=== PATIENT | female | born 1975 | race Caucasian/White ===

== ENCOUNTER 2016-07-24 20:34 | Emergency (ER) | payer OTHER ==
--- NOTE | 2016-07-24 21:03 | Emergency Department Record ---
History of Present Illness - General Chief complaint: ENT Stated complaint: SORE THROAT Time Seen by Provider: 07/24/16 20:54 Source: Patient Mode of Arrival: Ambulatory Limitations: No limitations - History of Present Illness Initial comments: 41 yo female presents with sore throat that started first of the week. She saw her PCP and tested positive for strep and negative for influenza. She was started on a Zpack. She feels like she is not getting better. No fever. No nausea, vomiting or diarrhea. She does have a productive cough. MD complaint: Sore throat -: Days(s) (3) Location: Other (Sore throat) Severity: Moderate Quality: Aching Consistency: Constant Improves with: None Worsens with: Swallowing Associated Symptoms: Cough - Related Data Home Medications Medication Instructions Recorded Confirmed Last Taken Estradiol 1 mg PO DAILY 04/15/14 07/24/16 1 Day Ago Famotidine [Famotidine] 20 mg PO BID 04/15/14 07/24/16 1 Day Ago Omeprazole [Omeprazole] 20 mg PO BID 04/15/14 07/24/16 1 Day Ago Lorazepam [Ativan] 1 mg PO Q12H PRN 05/19/15 07/24/16 Unknown Ketorolac Tromethamine 60 mg IM ASDIR syringe 03/10/16 07/24/16 Unknown Azithromycin [Zithromax] 250 mg PO DAILY 07/24/16 07/24/16 07/24/16 Previous Rx's Medication Instructions Recorded Hydrocodone/Acetaminophen [[place] 1 tab PO Q8H PRN #15 tab 12/13/15 5mg/325mg] Cephalexin [Keflex] 500 mg PO TID #21 cap 07/24/16 Allergies Allergy/AdvReac Type Severity Reaction Status Date / Time ciprofloxacin [From Cipro] Allergy Severe bronchiospa Unverified 03/10/16 19:09 sms ciprofloxacin HCl Allergy Severe bronchiospa Unverified 03/10/16 19:09 [From Cipro] sms Penicillins Allergy Severe HIVES Unverified 03/10/16 19:09 topiramate [From Topamax] Allergy Severe ANAPHYLAXIS Unverified 03/10/16 19:09 alprazolam [From Xanax] Allergy Intermediate HYPERSENSIT Unverified 03/10/16 19: 09 IVITY nitrofurantoin Allergy Intermediate VOMITING Unverified 03/10/16 19:09 [From Macrobid] nitrofurantoin Allergy Intermediate VOMITING Unverified 03/10/16 19:09 macrocrystalline [From Macrobid] Review of Systems Constitutional: Denies: Chills, Fever, Malaise, Weakness Eyes: Denies: Eye discharge, Eye pain, Photophobia ENT: Reports: Congestion, Throat pain Respiratory: Reports: Cough. Denies: Stridor, Wheezes Cardiovascular: Denies: Chest pain, Palpitations, Syncope Endocrine: Denies: Fatigue Gastrointestinal: Denies: Abdominal pain, Diarrhea (Thursday, resolved.), Nausea, Vomiting Genitourinary: Denies: Dysuria, Urgency Musculoskeletal: Denies: Arthralgia, Back pain, Myalgia, Neck pain Skin: Denies: Bruising, Change in color, Rash Neurological: Denies: Confusion, Headache Psychiatric: Denies: Anxiety Hematological/Lymphatic: Reports: Swollen glands. Denies: Blood Clots, Easy bleeding, Easy bruising Past Medical History - SOCIAL HISTORY Smoking Status: Former smoker - RESPIRATORY Hx Respiratory Disorders: No - CARDIOVASCULAR Hx Cardio Disorders: No - NEURO Hx Neuro Disorders: Yes Hx Headaches: Yes - GI Hx GI Disorders: No - Hx Genitourinary Disorders: No - ENDOCRINE Hx Endocrine Disorders: No - MUSCULOSKELETAL Hx Musculoskeletal Disorders: No - PSYCH Hx Psych Problems: No - HEMATOLOGY/ONCOLOGY Hx Hematology/Oncology Disorders: No Family Medical History Hx Diabetes: Father Hx Heart Disease: Father Hx Stroke: Father *Stroke Comment: anurism Physical Exam - General General Appearance: Alert, Oriented x3, Cooperative, No acute distress Limitations: No limitations - Head Head exam: Normal inspection - Eye Eye exam: Normal appearance, PERRL. negative: Conjunctival injection, Periorbital swelling - ENT ENT exam: Normal exam Ear exam: Normal external inspection Nasal Exam: Normal inspection Mouth exam: Normal external inspection Teeth exam: Normal inspection Throat exam: Tonsillar erythema, Tonsillomegaly, Other (Mild swelling bilaterally, no soft tissue shift or mass, no abscess). negative: Normal inspection, Tonsillar exudate, R peritonsillar mass, L peritonsillar mass - Neck Neck exam: Lymphadenopathy (left sided, mild). negative: Meningismus, Tenderness, Thyromegaly - Respiratory Respiratory exam: Normal lung sounds bilaterally. negative: Respiratory distress - Cardiovascular Cardiovascular Exam: Regular rate, Normal rhythm, Normal heart sounds - GI/Abdominal GI/Abdominal exam: Soft. negative: Tenderness - Rectal Rectal exam: Deferred - exam: Deferred - Extremities Extremities exam: Normal inspection, Full ROM, Normal capillary refill. negative: Pedal edema, Tenderness - Back Back exam: Reports: Normal inspection, Full ROM. Denies: Muscle spasm, Rash noted, Tenderness - Neurological Neurological exam: Alert, Normal gait, Oriented X3 - Psychiatric Psychiatric exam: Normal affect, Normal mood. negative: Agitated, Anxious - Skin Skin exam: Dry, Intact, Normal color, Warm Course - Reevaluation(s) Reevaluation #1: The tonsils have mild swelling, no abscess She has a clear voice. No sign of airway involvement. She was given Decadron in the ED 07/24/16 21:05 Disposition Disposition: Discharge Clinical Impression: Strep tonsillitis Disposition: Home, Self-Care Return To Work/School Note Provided: Yes Condition: (1) Good Instructions: Strep Throat (ED) Additional Instructions: Stay well hydrated Return if worse, dehydration, uncontrolled pain or any new concerns Call your doctor tomorrow for a recheck Prescriptions: Cephalexin [Keflex] 500 mg PO TID #21 cap Forms: Patient Portal Access Time of Disposition: 21:07
[2016-07-24] MEDS ORDERED: DEXAMETHASONE SOD PHOSPHATE 10MG/ML VIAL PO ONE (21:05)
== END 2016-07-24 21:21 | disposition home or self-care (01) ==
LOC: ER 20:34
DX: J03.00 Acute streptococcal tonsillitis, unspecified (principal); R05 Cough; Z87.891 Personal history of nicotine dependence
CPT/HCPCS: 99282

== ENCOUNTER 2016-08-26 02:03 | Emergency (ER) | payer OTHER ==
[2016-08-26] MEDS ORDERED: ONDANSETRON HCL IV 4 MG/2 ML VIAL IV ONE (02:14)
[2016-08-26] MEDS ORDERED: 0.9 % SODIUM CHLORIDE 1,000 ML BAG IV ONE ×2 (02:14→03:16)
--- NOTE | 2016-08-26 02:16 | Emergency Department Record ---
History of Present Illness - General Chief complaint: Nausea, Vomiting, Diarrhea Stated complaint: NAUSEA/VOMITNG Time Seen by Provider: 08/26/16 02:12 Source: Patient, Family Mode of Arrival: Ambulatory Limitations: No limitations - History of Present Illness Initial comments: 41 yo female presents with nausea, vomiting, and diarrhea that started earlier this evening. No blood in either. No current antibiotics. No fevers. She has a prior history of gall bladder removal. No history of Crohn's or IBD. Over the weekend her grandson had vomiting and diarrhea as well. The child actually vomited on her one time. PCP is Dr Khan in [place]. MD complaint: Diarrhea, Nausea, Vomiting -: Hour(s) Description of Vomiting: Watery Description of Diarrhea: Water - Related Data Home Medications Medication Instructions Recorded Confirmed Last Taken Estradiol 1 mg PO DAILY 04/15/14 08/26/16 1 Day Ago Famotidine [Famotidine] 20 mg PO BID 04/15/14 08/26/16 1 Day Ago Omeprazole [Omeprazole] 20 mg PO BID 04/15/14 08/26/16 1 Day Ago Lorazepam [Ativan] 1 mg PO Q12H PRN 05/19/15 08/26/16 Unknown Ketorolac Tromethamine 60 mg IM ASDIR syringe 03/10/16 08/26/16 Unknown Previous Rx's Medication Instructions Recorded Hydrocodone/Acetaminophen [[place] 1 tab PO Q8H PRN #15 tab 12/13/15 5mg/325mg] Ondansetron [Zofran Odt] 4 mg PO Q8H #15 tab.rapdis 08/26/16 Allergies Allergy/AdvReac Type Severity Reaction Status Date / Time ciprofloxacin [From Cipro] Allergy Severe bronchiospa Unverified 03/10/16 19:09 sms ciprofloxacin HCl Allergy Severe bronchiospa Unverified 03/10/16 19:09 [From Cipro] sms Penicillins Allergy Severe HIVES Unverified 03/10/16 19:09 topiramate [From Topamax] Allergy Severe ANAPHYLAXIS Unverified 03/10/16 19:09 alprazolam [From Xanax] Allergy Intermediate HYPERSENSIT Unverified 03/10/16 19: 09 IVITY nitrofurantoin Allergy Intermediate VOMITING Unverified 03/10/16 19:09 [From Macrobid] nitrofurantoin Allergy Intermediate VOMITING Unverified 03/10/16 19:09 macrocrystalline [From Macrobid] Review of Systems Constitutional: Denies: Chills, Fever, Malaise Eyes: Denies: Eye discharge ENT: Denies: Congestion, Throat pain Respiratory: Denies: Cough, Dyspnea, Hemoptysis, Stridor, Wheezes Cardiovascular: Denies: Chest pain, Syncope Endocrine: Denies: Fatigue Gastrointestinal: Reports: Diarrhea, Nausea, Vomiting Genitourinary: Denies: Dysuria, Urgency Musculoskeletal: Denies: Arthralgia, Back pain, Myalgia, Neck pain Skin: Denies: Change in color, Rash Neurological: Denies: Confusion, Headache Psychiatric: Denies: Anxiety Hematological/Lymphatic: Denies: Easy bleeding, Easy bruising, Swollen glands Past Medical History - SOCIAL HISTORY Smoking Status: Former smoker - RESPIRATORY Hx Respiratory Disorders: No - CARDIOVASCULAR Hx Cardio Disorders: No - NEURO Hx Neuro Disorders: Yes Hx Headaches: Yes - GI Hx GI Disorders: No - Hx Genitourinary Disorders: No - ENDOCRINE Hx Endocrine Disorders: No - MUSCULOSKELETAL Hx Musculoskeletal Disorders: No - PSYCH Hx Psych Problems: No - HEMATOLOGY/ONCOLOGY Hx Hematology/Oncology Disorders: No Family Medical History Hx Diabetes: Father Hx Heart Disease: Father Hx Stroke: Father *Stroke Comment: anurism Physical Exam - General General Appearance: Alert, Oriented x3, Cooperative, No acute distress Limitations: No limitations - Head Head exam: Atraumatic, Normal inspection - Eye Eye exam: Normal appearance, PERRL. negative: Conjunctival injection, Periorbital swelling, Scleral icterus - ENT ENT exam: Normal exam, Mucous membranes moist, Normal external ear exam, Normal orophraynx Ear exam: Normal external inspection. negative: External canal tenderness Nasal Exam: Normal inspection. negative: Discharge, Sinus tenderness Mouth exam: Normal external inspection Teeth exam: Normal inspection. negative: Dental caries Throat exam: Normal inspection. negative: Tonsillar erythema, Tonsillar exudate - Neck Neck exam: Normal inspection, Full ROM. negative: Tenderness - Respiratory Respiratory exam: Normal lung sounds bilaterally. negative: Respiratory distress - Cardiovascular Cardiovascular Exam: Regular rate, Normal rhythm, Normal heart sounds - GI/Abdominal GI/Abdominal exam: Soft, Normal bowel sounds. negative: Diminished bowel sounds , Distended, Guarding, Hyperactive bowel sounds, Rebound, Tenderness - Rectal Rectal exam: Deferred - exam: Deferred - Extremities Extremities exam: Normal inspection, Full ROM, Normal capillary refill. negative: Tenderness - Back Back exam: Reports: Normal inspection, Full ROM. Denies: Muscle spasm, Rash noted, Tenderness - Neurological Neurological exam: Alert, Normal gait, Oriented X3 - Psychiatric Psychiatric exam: Normal affect, Normal mood - Skin Skin exam: Dry, Intact, Normal color, Warm. negative: Cyanosis Course - Reevaluation(s) Reevaluation #1: The labs were reviewed WBC was 16 on the CBC On the CMP bili is 1.5, other acute changes. She reports improvement of her nausea. 08/26/16 02:48 Reevaluation #2: The nausea and vomiting is under control. She is trying PO fluids at this time. 08/26/16 03:57 Reevaluation #3: No vomiting or diarrhea with controlled nausea We discussed home care and reasons to return if any concerns. 08/26/16 04:17 Medical Decision Making - Lab Data Result diagrams: 08/26/16 02:14 08/26/16 02:14 Disposition Disposition: Discharge Clinical Impression: Vomiting and diarrhea Disposition: Home, Self-Care Condition: (1) Good Instructions: Acute Nausea and Vomiting (ED), Acute Diarrhea (ED) Additional Instructions: Rest and stay well hydrated Return if you have fever, pain, blood in the stools or any new concerns Call your doctor for close follow up as soon as possible Start slowly with liquids and bland diet this morning. Prescriptions: Ondansetron [Zofran Odt] 4 mg PO Q8H #15 tab.rapdis Forms: Patient Portal Access Time of Disposition: 04:18
[2016-08-26 02:23] LABS: BASO % 0.2 % (0-6); EOS % 1.3 % (0-6); HEMATOCRIT 46.9 % (35.0-47.0); LYMPH % 6.8 % (16-45); MEAN CORPUSCULAR HGB CONC 34.1 g/dl (32-36); MEAN PLATELET VOLUME 10.3 fl (7.4-10.4); MONO % 6.1 % (0-9); PLATELET COUNT 339 K/uL (130-400); RED BLOOD COUNT 5.52 M/uL (3.80-5.40); RED CELL DISTRIBUTION WIDTH 13.1 % (11.5-14.5); WHITE BLOOD COUNT W/O DIFF 16.6 K/uL (4.2-12.2)
[2016-08-26 02:24] LABS: MEAN CORPUSCULAR HEMOGLOBIN 28.9 pg (27-33)
[2016-08-26 02:34] LABS: ALB/GLOB RATIO 1.4 (1.1-1.8); ALBUMIN 4.9 gm/dL (3.5-5.0); ALKALINE PHOSPHATASE 81 U/L (38-126); ALT/SGPT 25 U/L (9-52); BILIRUBIN,TOTAL 1.59 mg/dL (0.2-1.3); BLOOD UREA NITROGEN 18 mg/dL (7-17); CREATININE 0.8 mg/dL (0.52-1.04); EST GLOMERULAR FILTRATION RATE > 60 ml/min; GLUCOSE,RANDOM 153 mg/dL (70-110); TOTAL PROTEIN 8.5 gm/dL (6.3-8.2)
[2016-08-26 02:43] LABS: AST/SGOT 18 U/L (14-36)
[2016-08-26] MEDS ORDERED: PROMETHAZINE HCL 25 MG/ML VIAL IVP ONE (03:06)
[2016-08-26] MEDS ORDERED: ONDANSETRON 4 MG ODT TABLET SL ONE (04:17)
== END 2016-08-26 04:36 | disposition home or self-care (01) ==
LOC: ER 02:03
DX: R11.2 Nausea with vomiting, unspecified (principal); R19.7 Diarrhea, unspecified
CPT/HCPCS: 80053; 85027; J2405; 96360; 96374; 96375; 99284; J2550; J7030

== ENCOUNTER 2016-12-06 20:11 | Emergency (ER) | payer OTHER ==
--- NOTE | 2016-12-06 20:33 | Emergency Department Record ---
History of Present Illness - General Chief complaint: Pain Stated complaint: LT KNEE PAIN,SWOLLEN Time Seen by Provider: 12/06/16 20:27 Source: Patient Mode of Arrival: Ambulatory Limitations: No limitations - History of Present Illness Initial comments: 41 yo female presents to ED for evaluation of left knee pain that began approximately 9-10 hours ago, denies specific injury. Patient reports pain to the medial region of the knee, patient denies swelling, fever, chills, or redness symptoms. Patient reports previous injury to the right knee several years ago requiring PT/OT. MD Complaint: Joint pain Onset/Timin -: Hour(s) Location: Left, Knee History of Same: No Radiation: None Severity scale (1-10): 8 Quality: Sharp, Stabbing Consistency: Constant Improves with: Movement, Rest Worsens with: Walking, Weight bearing Associated Symptoms: Denies other symptoms - Related Data Home Medications Medication Instructions Recorded Confirmed Last Taken Estradiol 1 mg PO DAILY 04/15/14 12/06/16 1 Day Ago ~05/18/15 Famotidine [Famotidine] 20 mg PO BID 04/15/14 12/06/16 1 Day Ago ~05/18/15 Omeprazole [Omeprazole] 20 mg PO BID 04/15/14 12/06/16 1 Day Ago ~05/18/15 Lorazepam [Ativan] 1 mg PO Q12H PRN 05/19/15 12/06/16 Unknown Ketorolac Tromethamine 60 mg IM ASDIR syringe 03/10/16 12/06/16 Unknown Previous Rx's Medication Instructions Recorded Hydrocodone/Acetaminophen [[place] 1 tab PO Q8H PRN #15 tab 12/13/15 5mg/325mg] Ondansetron [Zofran Odt] 4 mg PO Q8H #15 tab.rapdis 08/26/16 Naproxen [Naprosyn] 500 mg PO BID #30 tablet 12/06/16 Allergies Allergy/AdvReac Type Severity Reaction Status Date / Time ciprofloxacin [From Cipro] Allergy Severe bronchiospa Verified 12/06/16 20:17 sms ciprofloxacin HCl Allergy Severe bronchiospa Verified 12/06/16 20:17 [From Cipro] sms Penicillins Allergy Severe HIVES Verified 12/06/16 20:17 topiramate [From Topamax] Allergy Severe ANAPHYLAXIS Verified 12/06/16 20:17 alprazolam [From Xanax] Allergy Intermediate HYPERSENSIT Verified 12/06/16 20:17 IVITY nitrofurantoin Allergy Intermediate VOMITING Verified 12/06/16 20:17 [From Macrobid] nitrofurantoin Allergy Intermediate VOMITING Verified 12/06/16 20:17 macrocrystalline [From Macrobid] Travel Screening - Travel/Exposure Within Last 30 Days Have you traveled within the last 30 days?: No - Travel/Exposure Within Last Year Have you traveled outside the [place] in the last year?: No - Additonal Travel Details Have you been exposed to anyone with a communicable illness?: No - Travel Symptoms Symptom Screening: None Review of Systems Constitutional: Denies: Chills, Fever, Malaise, Night sweats Eyes: Denies: Eye discharge, Eye pain ENT: Denies: Congestion, Ear pain, Epistaxis Respiratory: Denies: Cough, Dyspnea Cardiovascular: Denies: Chest pain, Dyspnea on exertion Endocrine: Denies: Fatigue, Heat or cold intolerance Gastrointestinal: Denies: Abdominal pain, Nausea, Vomiting Genitourinary: Denies: Incontinence, Retention Musculoskeletal: Reports: Arthralgia. Denies: Back pain, Gout, Joint swelling Skin: Denies: Bruising, Change in color Neurological: Denies: Abnormal gait, Confusion, Headache, Seizure Psychiatric: Denies: Anxiety Hematological/Lymphatic: Denies: Anemia, Blood Clots Past Medical History - SOCIAL HISTORY Smoking Status: Current every day smoker Alcohol Use: Rare Drug Use: None - RESPIRATORY Hx Respiratory Disorders: No - CARDIOVASCULAR Hx Cardio Disorders: No - NEURO Hx Neuro Disorders: Yes Hx Headaches: Yes (migraines) - GI Hx GI Disorders: Yes Hx Reflux: Yes - Hx Genitourinary Disorders: No - ENDOCRINE Hx Endocrine Disorders: No - MUSCULOSKELETAL Hx Musculoskeletal Disorders: No - PSYCH Hx Psych Problems: Yes Hx Anxiety: Yes Hx Depression: Yes - HEMATOLOGY/ONCOLOGY Hx Hematology/Oncology Disorders: No Family Medical History Any Significant Family History?: No Hx Diabetes: Father Hx Heart Disease: Father Hx Stroke: Father *Stroke Comment: anurism Physical Exam - General General Appearance: Alert, Oriented x3, Cooperative, Mild distress Limitations: No limitations - Head Head exam: Atraumatic, Normocephalic, Normal inspection Head exam detail: negative: Abrasion, Contusion, Alvarado's sign, General tenderness, Hematoma, Laceration - Eye Eye exam: Normal appearance. negative: Conjunctival injection, Periorbital swelling, Periorbital tenderness, Scleral icterus - ENT Ear exam: negative: Auricular hematoma, Auricular trauma Nasal Exam: negative: Active bleeding, Discharge, Foreign body Mouth exam: negative: Drooling, Laceration, Muffled voice, Tongue elevation - Neck Neck exam: Normal inspection. negative: Meningismus, Tenderness - Respiratory Respiratory exam: Normal lung sounds bilaterally. negative: Rales, Respiratory distress, Rhonchi, Stridor - Cardiovascular Cardiovascular Exam: Regular rate, Normal rhythm, Normal heart sounds - GI/Abdominal GI/Abdominal exam: Soft. negative: Rebound, Rigid, Tenderness - Rectal Rectal exam: Deferred - exam: Deferred - Extremities Extremities exam: Tenderness, Other (Mild TTP along the inferio-medial aspect of the left knee, no effusion present, ligaments are stable on examination, no erythema or warmth to suggest a septic joint on examination.). negative: Calf tenderness, Pedal edema - Back Back exam: Denies: CVA tenderness (R), CVA tenderness (L) - Neurological Neurological exam: Alert, Oriented X3. negative: Motor sensory deficit - Psychiatric Psychiatric exam: Normal affect, Normal mood - Skin Skin exam: Normal color. negative: Abrasion Type of lesion: negative: abrasion Course Vital Signs 12/06/16 20:15 Temperature 98.2 F Pulse Rate 77 Respiratory 22 Rate Blood Pressure 124/74 Pulse Ox 96 - Reevaluation(s) Reevaluation #1: 12/06/16 21:39 Left knee: No acute process Patient was updated on all results, will place in a knee immobilizer with crutches and instructions for follow-up with her PCP in 3-5 days for further evaluation and possible PT. Will prescribe Naprosyn as well for her pain symptoms. Patient agrees with the plan as discussed and appears stable for discharge at this time. Disposition Disposition: Discharge Clinical Impression: Strain of left knee Qualifiers: Encounter type: initial encounter Qualified Code(s): S86.912A - Strain of unspecified muscle(s) and tendon(s) at lower leg level, left leg, initial encounter Disposition: Home, Self-Care Condition: (2) Stable Instructions: Knee Pain (ED) Additional Instructions: Return to ED if your symptoms worsen or if you have any concerns. Naprosyn as directed. Knee immobilizer/Crutches Follow-up with you family doctor in 3-5 days as directed for further evaluation of your knee pain symptoms. Prescriptions: Naproxen [Naprosyn] 500 mg PO BID #30 tablet Forms: Patient Portal Access Time of Disposition: 20:33 Quality - Quality Measures Quality Measures: N/A - Blood Pressure Screening Blood Pressure Classification: Pre-Hypertensive BP Reading Systolic Measurement: 124 Diastolic Measurement: 74 Screening for High Blood Pressure: < Pre-Hypertensive BP, F/U Documented > [ [id number]] Pre-Hypertensive Follow-up Interventions: Referral to alternative/primary care provider.
--- NOTE | 2016-12-09 08:45 | RADIOLOGY REPORT ---
EXAM: LEFT KNEE, THREE VIEWS HISTORY: PATIENT STATES NO KNOWN INJURY. PATIENT HAS HISTORY OF PAIN TIMES ONE DAY. TECHNIQUE: Three views of the left knee were provided without comparison examinations. FINDINGS: There is a slight contour deformity within the weight bearing surface of the lateral femoral condyle measuring 5.6 mm. This finding may represent an osteochondral defect. No obvious fractures of the tibia or fibula are noted. No significant suprapatellar bursal effusion is noted. The patella appears unremarkable. IMPRESSION: POSSIBLE OSTEOCHONDRAL DEFECT WITHIN THE WEIGHT BEARING SURFACE OF THE LATERAL FEMORAL CONDYLE. IF THERE IS FURTHER CLINICAL CONCERN THEN AN MRI OF THE LEFT KNEE CAN BE OBTAINED FOR FURTHER EVALUATION. JOB NUMBER: [id number] MTDD
== END 2016-12-06 22:03 | disposition home or self-care (01) ==
LOC: ER 20:11
DX: S86.912A Strain of unspecified muscle(s) and tendon(s) at lower leg level, left leg, initial encounter (principal); X58.XXXA Exposure to other specified factors, initial encounter
CPT/HCPCS: 99283

== ENCOUNTER 2017-05-30 13:32 | Emergency (ER) | payer MEDICAID, OTHER ==
--- NOTE | 2017-05-30 13:56 | Emergency Department Record ---
History of Present Illness - General Chief complaint: Flu Like Symptoms Stated complaint: COUGH,MARTINEZ, SORE THROAT Time Seen by Provider: 05/30/17 13:56 Source: Patient Mode of Arrival: Ambulatory Limitations: No limitations - History of Present Illness Initial comments: The patient is here due to a 3 day hx of cough, congestion, body aches, and a mild MARTINEZ. She denies any neck pain, AP, sob or vomiting. MD Complaint: Generalized weakness Onset/Timin -: Days(s) Location: Face Severity: Moderate Severity scale (1-10): 5 Quality: Aching Consistency: Constant Improves with: None - Haroon Coma Scale Eye Response: (4) Open spontaneously Motor Response: (6) Obeys commands Verbal Response: (5) Oriented Mcdonald Total: 15 - Related Data Home Medications Medication Instructions Recorded Confirmed Last Taken Escitalopram Oxalate [Lexapro] 20 mg PO DAILY 05/30/17 05/30/17 1 Day Ago ~05/29/17 Previous Rx's Medication Instructions Recorded Doxycycline Monohydrate [Mondoxyne 100 mg PO BID #14 capsule 05/30/17 ] Allergies Allergy/AdvReac Type Severity Reaction Status Date / Time ciprofloxacin [From Cipro] Allergy Severe bronchiospa Verified 05/30/17 13:49 sms ciprofloxacin HCl Allergy Severe bronchiospa Verified 05/30/17 13:49 [From Cipro] sms Penicillins Allergy Severe HIVES Verified 05/30/17 13:49 topiramate [From Topamax] Allergy Severe ANAPHYLAXIS Verified 05/30/17 13:49 alprazolam [From Xanax] Allergy Intermediate HYPERSENSIT Verified 05/30/17 13:49 IVITY nitrofurantoin Allergy Intermediate VOMITING Verified 05/30/17 13:49 [From Macrobid] nitrofurantoin Allergy Intermediate VOMITING Verified 05/30/17 13:49 macrocrystalline [From Macrobid] Travel Screening - Travel/Exposure Within Last 30 Days Have you traveled within the last 30 days?: No - Travel/Exposure Within Last Year Have you traveled outside the [place] in the last year?: No - Additonal Travel Details Have you been exposed to anyone with a communicable illness?: No - Travel Symptoms Symptom Screening: None Review of Systems Constitutional: Denies: Chills, Fever Eyes: Denies: Eye discharge ENT: Reports: Congestion Respiratory: Reports: Cough. Denies: Dyspnea Past Medical History - SOCIAL HISTORY Smoking Status: Current every day smoker Alcohol Use: None Drug Use Detail:: Marijuana - RESPIRATORY Hx Respiratory Disorders: No - CARDIOVASCULAR Hx Cardio Disorders: No - NEURO Hx Neuro Disorders: Yes Hx Headaches: Yes (migraines) - GI Hx GI Disorders: Yes Hx Reflux: Yes - Hx Genitourinary Disorders: No - ENDOCRINE Hx Endocrine Disorders: No - MUSCULOSKELETAL Hx Musculoskeletal Disorders: No - PSYCH Hx Psych Problems: Yes Hx Anxiety: Yes Hx Depression: Yes - HEMATOLOGY/ONCOLOGY Hx Hematology/Oncology Disorders: No Family Medical History Any Significant Family History?: Yes Hx Diabetes: Father Hx Heart Disease: Father Hx Stroke: Father *Stroke Comment: anurism Physical Exam - General General Appearance: Alert, Oriented x3, Cooperative, No acute distress - Head Head exam: Atraumatic, Normocephalic, Normal inspection - Eye Eye exam: Normal appearance, PERRL - ENT Throat exam: Normal inspection. negative: Tonsillar erythema, Tonsillar exudate - Neck Neck exam: Normal inspection, Full ROM. negative: Tenderness - Respiratory Respiratory exam: Normal lung sounds bilaterally. negative: Respiratory distress - Cardiovascular Cardiovascular Exam: Regular rate, Normal rhythm, Normal heart sounds - GI/Abdominal GI/Abdominal exam: Soft, Normal bowel sounds. negative: Tenderness - Extremities Extremities exam: Normal inspection, Full ROM, Normal capillary refill. negative: Tenderness Course Vital Signs 05/30/17 13:45 Temperature 98.4 F Pulse Rate 80 Respiratory 12 Rate Blood Pressure 107/70 Pulse Ox 95 - Reevaluation(s) Reevaluation #1: I did discuss the Neg FLu swab with the patient and the need for F/U. 05/30/17 14:31 Medical Decision Making - Data Complexity MDM Data: Labs Ordered and/or Reviewed (Flu: Neg.) Disposition Disposition: Discharge Clinical Impression: Bronchitis Disposition: Home, Self-Care Condition: (2) Stable Instructions: Upper Respiratory Infection (ED) Additional Instructions: Please take the Doxycycline as directed and use Mucinex for the cough. Please see your PCP for recheck next week. Return to the ER for any worsening symptoms. Prescriptions: Doxycycline Monohydrate [Mondoxyne Nl] 100 mg PO BID #14 capsule Forms: Patient Portal Access Time of Disposition: 14:26 Quality - Quality Measures Quality Measures: N/A - Blood Pressure Screening View Details: Yes Does Patient Have Any of the Following: No Blood Pressure Classification: Normal BP Reading Systolic Measurement: 107 Diastolic Measurement: 70 Screening for High Blood Pressure: < Normal BP, F/U Not Required > [G0528]
[2017-05-30] MEDS ORDERED: ACETAMINOPHEN 325 MG TAB PO ONE (14:05)
[2017-05-30 14:21] LABS: INFLUENZA A NEGATIVE (NEGATIVE); INFLUENZA B NEGATIVE (NEGATIVE)
== END 2017-05-30 14:41 | disposition home or self-care (01) ==
LOC: ER 13:32
DX: J20.9 Acute bronchitis, unspecified (principal)
CPT/HCPCS: 87400; 99282

== ENCOUNTER 2017-07-20 12:49 | Emergency (ER) | payer MEDICAID ==
--- NOTE | 2017-07-20 13:42 | Emergency Department Record ---
History of Present Illness - General Chief Complaint: Ankle/Foot Injury Stated Complaint: RT FOOT ARCH PAIN Time Seen by Provider: 07/20/17 13:13 Source: Patient Mode of Arrival: Ambulatory Limitations: No limitations - History of Present Illness Initial Comments: The patient was walking up some stairs yesterday and turned and her R knee gave out (chronic problem per the patient) and she twisted the R foot and banged the R knee with the fall. Since she has had significant R foot pain over the arch mainly. She denies any new numbness or tingling. MD Complaint: Knee injury, Foot injury Onset/Timin -: Days(s) Type of Injury: Blunt Place: Home Severity scale (1-10): 3 Improves With: Nothing Worsens With: Nothing Context: Fall Treatments Prior to Arrival: Cold therapy - Related Data Home Medications Medication Instructions Recorded Confirmed Last Taken Hydrocodone/Acetaminophen [[place] 1 each PO BID PRN 07/20/17 07/20/17 Unknown 5-325 Tablet] Ketorolac Tromethamine 30 mg IJ ASDIR 07/20/17 07/20/17 Unknown Allergies Allergy/AdvReac Type Severity Reaction Status Date / Time ciprofloxacin [From Cipro] Allergy Severe bronchiospa Unverified 06/30/17 14:40 sms ciprofloxacin HCl Allergy Severe bronchiospa Unverified 06/30/17 14:40 [From Cipro] sms Penicillins Allergy Severe HIVES Unverified 06/30/17 14:40 topiramate [From Topamax] Allergy Severe ANAPHYLAXIS Unverified 06/30/17 14:40 alprazolam [From Xanax] Allergy Intermediate HYPERSENSIT Unverified 06/30/17 14: 40 IVITY nitrofurantoin Allergy Intermediate VOMITING Unverified 06/30/17 14:40 [From Macrobid] nitrofurantoin Allergy Intermediate VOMITING Unverified 06/30/17 14:40 macrocrystalline [From Macrobid] Travel Screening - Travel/Exposure Within Last 30 Days Have you traveled within the last 30 days?: No - Travel/Exposure Within Last Year Have you traveled outside the [place] in the last year?: No - Additonal Travel Details Have you been exposed to anyone with a communicable illness?: No - Travel Symptoms Symptom Screening: None Review of Systems Constitutional: Denies: Chills, Fever Eyes: Denies: Eye discharge Past Medical History - SOCIAL HISTORY Smoking Status: Current every day smoker Alcohol Use: Rare Drug Use: Heavy Drug Use Detail:: Marijuana - RESPIRATORY Hx Respiratory Disorders: No - CARDIOVASCULAR Hx Cardio Disorders: No - NEURO Hx Neuro Disorders: Yes Hx Headaches: Yes (migraines) - GI Hx GI Disorders: Yes Hx Reflux: Yes - Hx Genitourinary Disorders: No - ENDOCRINE Hx Endocrine Disorders: No - MUSCULOSKELETAL Hx Musculoskeletal Disorders: No - PSYCH Hx Psych Problems: Yes Hx Anxiety: Yes Hx Depression: Yes - HEMATOLOGY/ONCOLOGY Hx Hematology/Oncology Disorders: No Family Medical History Any Significant Family History?: No Hx Diabetes: Father Hx Heart Disease: Father Hx Stroke: Father *Stroke Comment: anurism Physical Exam - General General Appearance: Alert, Oriented x3, Cooperative, No acute distress - Head Head exam: Atraumatic, Normocephalic, Normal inspection - Respiratory Respiratory exam: Normal lung sounds bilaterally. negative: Respiratory distress - Cardiovascular Cardiovascular Exam: Regular rate, Normal rhythm, Normal heart sounds - Extremities Extremities exam: Normal capillary refill, Tenderness (There is R foot tenderness over the arch and anterior R knee tenderness. The R foot and leg are NVI.). negative: Normal inspection (There is a mild bruise to the anterior R knee with mild tenderness. There is no swelling or bruising to the R foot.), Full ROM (There is decreased full ROM of the R knee due to mild pain but no ligamentous laxity.), Joint swelling Image of Feet: 1 - Area of pain. There is no swelling or bruising appreciated. Course Vital Signs 07/20/17 12:58 Temperature 97.8 F Pulse Rate 79 Respiratory 16 Rate Blood Pressure 128/87 Pulse Ox 97 - Reevaluation(s) Reevaluation #1: I did discuss the xrays with the patient and the need for F/U. 07/20/17 14:28 Medical Decision Making - Data Complexity MDM Data: X-Ray Ordered and/or Reviewed - Radiology Data Radiology results: Report reviewed (R knee: neg R Foot: Old navicular fx medially. ) Disposition Disposition: Discharge Clinical Impression: Right foot injury Qualifiers: Encounter type: initial encounter Qualified Code(s): S99.921A - Unspecified injury of right foot, initial encounter Disposition: Home, Self-Care Condition: (2) Stable Instructions: Foot Sprain (ED) Additional Instructions: Please ice and elevate the R foot and wear the shoe for a week and use crutches to be non weight bearing. Please see your family doctor for recheck and take your home pain medicines. Return to the ER for any worsening pain, swelling or any new issues. Forms: Patient Portal Access Time of Disposition: 14:31 Quality - Quality Measures Quality Measures: N/A - Blood Pressure Screening View Details: Yes Does Patient Have Any of the Following: No Blood Pressure Classification: Hypertensive Reading Systolic Measurement: 117 Diastolic Measurement: 92 Screening for High Blood Pressure: < First Hypertensive BP, F/U Documented > [ G8950] First Hypertensive Follow-up Interventions: Referral to alternative/primary care provider.
[2017-07-20] MEDS ORDERED: KETOROLAC 30 MG/ML VIAL IM ONE (14:10)
--- NOTE | 2017-07-21 08:59 | RADIOLOGY REPORT ---
EXAM: RIGHT FOOT HISTORY: TRAUMA. TECHNIQUE: Three views of the right foot were obtained. Comparison: None. Encounter: Initial. FINDINGS: Negative for an acute fracture or dislocation. Deformity of the tarsal navicular likely relates to sequelae of old trauma. The soft tissues are unremarkable. IMPRESSION: NEGATIVE FOR ACUTE ABNORMALITY. JOB NUMBER: [id number] MTDD
--- NOTE | 2017-07-21 09:01 | RADIOLOGY REPORT ---
EXAM: RIGHT KNEE HISTORY: RIGHT KNEE PAIN. TECHNIQUE: Three views of the right knee were obtained. Comparison: None. Encounter: Initial. FINDINGS: Negative for fracture or dislocation. The soft tissues are unremarkable. The joint spaces are preserved. IMPRESSION: NEGATIVE RIGHT KNEE EXAMINATION. JOB NUMBER: [id number] MTDD
== END 2017-07-20 14:45 | disposition home or self-care (01) ==
LOC: ER 12:49
DX: S99.921A Unspecified injury of right foot, initial encounter (principal); M25.561 Pain in right knee; W10.9XXA Fall (on) (from) unspecified stairs and steps, initial encounter; Y92.009 Unspecified place in unspecified non-institutional (private) residence as the place of occurrence of the external cause; F17.210 Nicotine dependence, cigarettes, uncomplicated
CPT/HCPCS: 99283; 96372; 99284; 73630; 73562; J1885

== ENCOUNTER 2017-07-30 12:02 | Emergency (ER) | payer MEDICAID ==
[2017-07-30 12:44] LABS: INFLUENZA A POSITIVE (NEGATIVE); INFLUENZA B NEGATIVE (NEGATIVE)
--- NOTE | 2017-07-30 12:44 | Emergency Department Record ---
History of Present Illness - General Chief Complaint: Cough Stated Complaint: HEADACHE/COUGHING Time Seen by Provider: 07/30/17 12:18 Source: Patient Mode of Arrival: Ambulatory Limitations: No limitations - History of Present Illness Initial Comments: The patient is here due to a cough with congestion, MARTINEZ, and low grade fever for 3 days. She denies any SOB, CP, back pain or vomiting. MD Complaint: Cough, Fever, Nasal congestion Onset/Timin -: Days(s) Severity: Severe Severity scale (1-10): 10 Consistency: Constant - Related Data Home Medications Medication Instructions Recorded Confirmed Last Taken Amitriptyline HCl 25 mg PO QHS 07/30/17 07/30/17 Unknown Previous Rx's Medication Instructions Recorded Oseltamivir Phosphate [Tamiflu] 75 mg PO BID #10 capsule 07/30/17 Promethazine HCl/Codeine 5 - 10 ml PO .AT BEDTIME PRN #100 07/30/17 [Phenergan W/Codeine] ml Allergies Allergy/AdvReac Type Severity Reaction Status Date / Time ciprofloxacin [From Cipro] Allergy Severe bronchiospa Verified 07/30/17 12:10 sms ciprofloxacin HCl Allergy Severe bronchiospa Verified 07/30/17 12:10 [From Cipro] sms Penicillins Allergy Severe HIVES Verified 07/30/17 12:10 topiramate [From Topamax] Allergy Severe ANAPHYLAXIS Verified 07/30/17 12:10 alprazolam [From Xanax] Allergy Intermediate HYPERSENSIT Verified 07/30/17 12:10 IVITY nitrofurantoin Allergy Intermediate VOMITING Verified 07/30/17 12:10 [From Macrobid] nitrofurantoin Allergy Intermediate VOMITING Verified 07/30/17 12:10 macrocrystalline [From Macrobid] Travel Screening - Travel/Exposure Within Last 30 Days Have you traveled within the last 30 days?: No Review of Systems Constitutional: Reports: Malaise. Denies: Chills, Fever Eyes: Denies: Eye discharge ENT: Reports: Congestion Respiratory: Reports: Cough. Denies: Dyspnea Past Medical History - SOCIAL HISTORY Smoking Status: Current every day smoker Alcohol Use: None Drug Use: None - RESPIRATORY Hx Respiratory Disorders: No - CARDIOVASCULAR Hx Cardio Disorders: No - NEURO Hx Neuro Disorders: Yes Hx Headaches: Yes (migraines) - GI Hx GI Disorders: Yes Hx Reflux: Yes - Hx Genitourinary Disorders: No - ENDOCRINE Hx Endocrine Disorders: No - MUSCULOSKELETAL Hx Musculoskeletal Disorders: No - PSYCH Hx Psych Problems: Yes Hx Anxiety: Yes Hx Depression: Yes - HEMATOLOGY/ONCOLOGY Hx Hematology/Oncology Disorders: No Family Medical History Any Significant Family History?: Yes Hx Diabetes: Father Hx Heart Disease: Father Hx Stroke: Father *Stroke Comment: anurism Physical Exam - General General Appearance: Alert, Oriented x3, Cooperative, No acute distress - Head Head exam: Atraumatic, Normocephalic, Normal inspection - Eye Eye exam: Normal appearance, PERRL - ENT Throat exam: Normal inspection. negative: Tonsillar erythema, Tonsillar exudate - Neck Neck exam: Normal inspection, Full ROM. negative: Tenderness - Respiratory Respiratory exam: Normal lung sounds bilaterally. negative: Respiratory distress - Cardiovascular Cardiovascular Exam: Regular rate, Normal rhythm, Normal heart sounds - GI/Abdominal GI/Abdominal exam: Soft, Normal bowel sounds. negative: Tenderness - Extremities Extremities exam: Normal inspection, Full ROM, Normal capillary refill. negative: Tenderness Course Vital Signs 07/30/17 12:07 Temperature 99.6 F Pulse Rate 93 H Respiratory 20 Rate Blood Pressure 127/92 Pulse Ox 95 - Reevaluation(s) Reevaluation #1: The patient is doing very well. I did explain to her the Flu test was Pos for Flu A. She is to see her PCP for recheck early next week and to return to the ER for any worsening symptoms. 07/30/17 12:58 Medical Decision Making - Data Complexity MDM Data: Labs Ordered and/or Reviewed (Flu A Pos.), X-Ray Ordered and/or Reviewed - Radiology Data Radiology results: Report reviewed (CXR: Neg.) Disposition Disposition: Discharge Clinical Impression: Influenza A Disposition: Home, Self-Care Condition: (2) Stable Instructions: Influenza (ED) Additional Instructions: Please take the Tamiflu and use Tylenol and Motrin for body aches and fever. Drink plenty of fluids. Take the cough medicines as needed and see your family doctor for recheck early next week. Return to the ER for any worsening symptoms. Prescriptions: Oseltamivir Phosphate [Tamiflu] 75 mg PO BID #10 capsule Promethazine HCl/Codeine [Phenergan W/Codeine] 5 - 10 ml PO .AT BEDTIME PRN # 100 ml PRN Reason: Cough Forms: Patient Portal Access Quality - Quality Measures Quality Measures: N/A - Blood Pressure Screening View Details: Yes Does Patient Have Any of the Following: No Blood Pressure Classification: Hypertensive Reading Systolic Measurement: 127 Diastolic Measurement: 92 Screening for High Blood Pressure: < First Hypertensive BP, F/U Documented > [ G8950] First Hypertensive Follow-up Interventions: Referral to alternative/primary care provider.
--- NOTE | 2017-07-31 17:47 | RADIOLOGY REPORT ---
EXAM: CHEST 2 VIEWS HISTORY: COUGH FOR TWO DAYS. TECHNIQUE: PA and lateral views. COMPARISON: Two-view chest 03/10/16. FINDINGS: Heart size is within normal limits. No definite acute infiltrate seen. No pleural effusion or pneumothorax evident. Surgical clips right upper quadrant of the abdomen, presumably from cholecystectomy. IMPRESSION: CHEST APPEARS ESSENTIALLY NEGATIVE WITH NO ACUTE INFILTRATE SEEN. SURGICAL CLIPS RIGHT UPPER QUADRANT OF THE ABDOMEN, PRESUMABLY FROM CHOLECYSTECTOMY. JOB NUMBER: [id number] MTDD
== END 2017-07-30 13:11 | disposition home or self-care (01) ==
LOC: ER 12:02
DX: J10.1 Influenza due to other identified influenza virus with other respiratory manifestations (principal); R05 Cough; R51 Headache; F17.210 Nicotine dependence, cigarettes, uncomplicated
CPT/HCPCS: 71046; 87400; 99283

== ENCOUNTER 2017-08-25 21:30 | Emergency (ER) | payer MEDICAID ==
[2017-08-25] MEDS ORDERED: KETOROLAC 30 MG/ML VIAL IM ONE (21:50)
[2017-08-25] MEDS ORDERED: HYDROCODONE/APAP 7.5/325MG TABLET PO ONE (21:50)
--- NOTE | 2017-08-25 21:53 | Emergency Department Record ---
History of Present Illness - General Chief Complaint: Back Pain/Injury Stated Complaint: RT LEG/HIP PAIN Time Seen by Provider: 08/25/17 21:45 Source: Patient Mode of Arrival: Ambulatory Limitations: No limitations - History of Present Illness Initial Comments: 42 yo female presents with right hip pain since yesterday afternoon. She is dealing with a right foot injury and placed in a boot. She had to alter her walking and this is aggregating her right hip. She has prior sciatica. No weakness or numbness, no changes in bowel or bladder function. The pain is posterior right hip to posterior glutteal area. No warmth or redness. No swelling. MD Complaint: Other (Hip pain) Onset/Timin -: Hour(s) Place: Home Severity: Moderate Severity scale (1-10): 10 Worsens With: Walking Associated Symptoms: Denies other symptoms Treatments Prior to Arrival: Prescription analgesics - Related Data Previous Rx's Medication Instructions Recorded Oseltamivir Phosphate [Tamiflu] 75 mg PO BID #10 capsule 07/30/17 Promethazine HCl/Codeine 5 - 10 ml PO .AT BEDTIME PRN #100 07/30/17 [Phenergan W/Codeine] ml Diazepam [Valium] 5 mg PO Q8H #15 tab 08/25/17 Allergies Allergy/AdvReac Type Severity Reaction Status Date / Time ciprofloxacin [From Cipro] Allergy Severe bronchiospa Verified 08/18/17 15:10 sms ciprofloxacin HCl Allergy Severe bronchiospa Verified 08/18/17 15:10 [From Cipro] sms Penicillins Allergy Severe HIVES Verified 08/18/17 15:10 topiramate [From Topamax] Allergy Severe ANAPHYLAXIS Verified 08/18/17 15:10 alprazolam [From Xanax] Allergy Intermediate HYPERSENSIT Verified 08/18/17 15:10 IVITY nitrofurantoin Allergy Intermediate VOMITING Verified 08/18/17 15:10 [From Macrobid] nitrofurantoin Allergy Intermediate VOMITING Verified 08/18/17 15:10 macrocrystalline [From Macrobid] Travel Screening - Travel/Exposure Within Last 30 Days Have you traveled within the last 30 days?: No - Travel/Exposure Within Last Year Have you traveled outside the [place] in the last year?: No - Additonal Travel Details Have you been exposed to anyone with a communicable illness?: No - Travel Symptoms Symptom Screening: None Review of Systems Constitutional: Denies: Chills, Fever, Malaise, Weakness Eyes: Denies: Eye discharge ENT: Denies: Congestion, Throat pain Respiratory: Denies: Cough, Dyspnea, Hemoptysis, Wheezes Cardiovascular: Denies: Chest pain, Palpitations, Syncope Endocrine: Denies: Fatigue Gastrointestinal: Denies: Abdominal pain, Diarrhea, Nausea, Vomiting Genitourinary: Denies: Dysuria, Urgency Musculoskeletal: Reports: As per HPI, Arthralgia, Back pain, Myalgia Skin: Denies: Bruising, Change in color, Rash Neurological: Denies: Headache, Numbness, Tingling, Tremors, Vertigo, Weakness Psychiatric: Denies: Anxiety, Visual hallucinations Hematological/Lymphatic: Denies: Easy bruising, Swollen glands Past Medical History - SOCIAL HISTORY Smoking Status: Current every day smoker Alcohol Use: None Drug Use: None - RESPIRATORY Hx Respiratory Disorders: No - CARDIOVASCULAR Hx Cardio Disorders: No - NEURO Hx Neuro Disorders: Yes Hx Headaches: Yes (migraines) - GI Hx GI Disorders: Yes Hx Reflux: Yes - Hx Genitourinary Disorders: No - ENDOCRINE Hx Endocrine Disorders: No - MUSCULOSKELETAL Hx Musculoskeletal Disorders: No - PSYCH Hx Psych Problems: Yes Hx Anxiety: Yes Hx Depression: Yes - HEMATOLOGY/ONCOLOGY Hx Hematology/Oncology Disorders: No Family Medical History Any Significant Family History?: No Hx Diabetes: Father Hx Heart Disease: Father Hx Stroke: Father *Stroke Comment: anurism Physical Exam - General General Appearance: Alert, Oriented x3, Cooperative, No acute distress Limitations: No limitations - Head Head exam: Atraumatic, Normal inspection - Eye Eye exam: Normal appearance. negative: Scleral icterus - ENT ENT exam: Normal exam Ear exam: Normal external inspection Nasal Exam: Normal inspection Mouth exam: Normal external inspection - Neck Neck exam: Normal inspection, Full ROM. negative: Tenderness - Respiratory Respiratory exam: Normal lung sounds bilaterally. negative: Respiratory distress - Cardiovascular Cardiovascular Exam: Regular rate, Normal rhythm, Normal heart sounds - GI/Abdominal GI/Abdominal exam: Soft. negative: Tenderness - Rectal Rectal exam: Deferred - exam: Deferred - Extremities Extremities exam: Normal inspection, Normal capillary refill, Tenderness. negative: Calf tenderness, Pedal edema Image of Full Body: 1 - tender posterior lateral hip, negative log role, lumbar non tender normal inspection - Back Back exam: Reports: Normal inspection, Full ROM. Denies: CVA tenderness (R), CVA tenderness (L), Muscle spasm, Paraspinal tenderness, Rash noted, Tenderness , Vertebral tenderness - Neurological Neurological exam: Alert, Normal gait, Oriented X3. negative: Motor sensory deficit - Psychiatric Psychiatric exam: Normal affect, Normal mood. negative: Agitated, Anxious - Skin Skin exam: Dry, Intact, Normal color, Warm Course Vital Signs 08/25/17 21:35 Temperature 98.2 F Pulse Rate [ 84 Pulse Ox Probe] Respiratory 18 Rate Blood Pressure 139/90 [Left Arm] Pulse Ox 98 - Reevaluation(s) Reevaluation #1: The hip XR was reviewed No acute process on the prelim XR DC Recommend she uses the crutches to minimize weight bearing on the right as she gets used to the [employer] boot. 08/25/17 22:19 Disposition Disposition: Discharge Clinical Impression: Sciatica Strain of right hip Qualifiers: Encounter type: initial encounter Qualified Code(s): S76.011A - Strain of muscle, fascia and tendon of right hip, initial encounter Disposition: Home, Self-Care Condition: (1) Good Instructions: Sciatica (ED) Additional Instructions: Rest and avoid weight bearing until pain improves See your orthopedic doctor about your hip pain is not improved Prescriptions: Diazepam [Valium] 5 mg PO Q8H #15 tab Forms: Patient Portal Access Time of Disposition: 22:21 Quality - Quality Measures Quality Measures: N/A - Blood Pressure Screening Does Patient Have Any of the Following: No Blood Pressure Classification: Hypertensive Reading Systolic Measurement: 139 Diastolic Measurement: 90 Screening for High Blood Pressure: < Pre-Hypertensive BP, F/U Documented > [ G8950] Pre-Hypertensive Follow-up Interventions: Referral to alternative/primary care provider.
--- NOTE | 2017-08-27 08:58 | RADIOLOGY REPORT ---
EXAM: RIGHT HIP AND PELVIS HISTORY: RIGHT HIP PAIN. TECHNIQUE: Frontal view of the pelvis and two views of the right hip were obtained. Comparison: [employer] view from CT pelvis 12/13/15. Encounter: Initial. FINDINGS: PELVIS: Symmetric joint spaces of the hips. The sacroiliac joints are symmetric. No fractures. There are phleboliths in the pelvis. RIGHT HIP: No fracture or dislocation. No bone lesions. No soft tissue abnormalities. IMPRESSION: NORMAL FINDINGS IN THE PELVIS AND RIGHT HIP. JOB NUMBER: [id number] [facility]
== END 2017-08-25 22:46 | disposition home or self-care (01) ==
LOC: ER 21:30
DX: S76.011A Strain of muscle, fascia and tendon of right hip, initial encounter (principal); M54.31 Sciatica, right side; F17.210 Nicotine dependence, cigarettes, uncomplicated; X50.0XXA Overexertion from strenuous movement or load, initial encounter
CPT/HCPCS: 99283; 96372; 99284; 73502; J1885

== ENCOUNTER 2017-10-31 13:05 | Emergency (ER) | payer MEDICAID ==
--- NOTE | 2017-10-31 13:28 | Emergency Department Record ---
History of Present Illness - General Chief Complaint: Ankle/Foot Injury Stated Complaint: PAIN IN RT HEEL Time Seen by Provider: 10/31/17 13:11 Source: Patient Mode of Arrival: Wheelchair Limitations: No limitations - History of Present Illness Initial Comments: The patient is here due to R leg pain for one day. She had foot and leg surgery a month ago and is in a walking boot and is non weight bearing. Yesterday she tripped and strained the ankle and back of the R leg at the surgical site. Now she is having much more pain over the back of the leg at one of the surgical sites. She has not put any weight on the foot since the surgery and she did not contact her surgeon. MD Complaint: Leg injury Onset/Timin -: Days(s) Place: Home Severity scale (1-10): 10 Improves With: Nothing Worsens With: Weight bearing Context: Other Associated Symptoms: Other - Related Data Allergies Allergy/AdvReac Type Severity Reaction Status Date / Time ciprofloxacin [From Cipro] Allergy Severe bronchiospa Verified 08/18/17 15:10 sms ciprofloxacin HCl Allergy Severe bronchiospa Verified 08/18/17 15:10 [From Cipro] sms Penicillins Allergy Severe HIVES Verified 08/18/17 15:10 topiramate [From Topamax] Allergy Severe ANAPHYLAXIS Verified 08/18/17 15:10 alprazolam [From Xanax] Allergy Intermediate HYPERSENSIT Verified 08/18/17 15:10 IVITY nitrofurantoin Allergy Intermediate VOMITING Verified 08/18/17 15:10 [From Macrobid] nitrofurantoin Allergy Intermediate VOMITING Verified 08/18/17 15:10 macrocrystalline [From Macrobid] Travel Screening - Travel/Exposure Within Last 30 Days Have you traveled within the last 30 days?: No Review of Systems Constitutional: Denies: Chills, Fever Past Medical History - SOCIAL HISTORY Smoking Status: Current every day smoker Alcohol Use: None Drug Use: None - RESPIRATORY Hx Respiratory Disorders: No - CARDIOVASCULAR Hx Cardio Disorders: No - NEURO Hx Neuro Disorders: Yes Hx Headaches: Yes (migraines) - GI Hx GI Disorders: Yes Hx Reflux: Yes - Hx Genitourinary Disorders: No - ENDOCRINE Hx Endocrine Disorders: No - MUSCULOSKELETAL Hx Musculoskeletal Disorders: No - PSYCH Hx Psych Problems: Yes Hx Anxiety: Yes Hx Depression: Yes - HEMATOLOGY/ONCOLOGY Hx Hematology/Oncology Disorders: No Family Medical History Any Significant Family History?: Yes Hx Diabetes: Father Hx Heart Disease: Father Hx Stroke: Father *Stroke Comment: anurism Physical Exam - General General Appearance: Alert, Cooperative, No acute distress - Head Head exam: Atraumatic, Normocephalic - Eye Eye exam: Normal appearance, PERRL - Extremities Extremities exam: Normal capillary refill, Tenderness. negative: Normal inspection (There are post op surgical scars to the R foot and posterior lower leg. They both appear very well healed with no swelling, bruising or erythema. There is tenderness to the leg inferior surgical area but it appears very normal at this time.), Full ROM, Joint swelling Image of Full Body: 1 - Area of tenderness with the well appearing surgical site. There is no swelling, bruising, or erythema. Course Vital Signs 10/31/17 13:10 Temperature 98.5 F Pulse Rate 77 Respiratory 16 Rate Blood Pressure 123/71 Pulse Ox 96 - Reevaluation(s) Reevaluation #1: The patient is resting comfortably. I did explain that the xrays appear normal. I also did relay that I think the achilles tendon is normal but due to the recent surgery in that area and pain it is very difficult to be 100% certain of that. She is to see her surgeon BREANA and to keep using the boot and to be non weight bearing. 10/31/17 13:51 Medical Decision Making - Data Complexity MDM Data: X-Ray Ordered and/or Reviewed - Radiology Data Radiology results: Report reviewed (R tib/fib: Neg.) Disposition Disposition: Discharge Clinical Impression: Leg pain, right Disposition: Home, Self-Care Condition: (2) Stable Instructions: Leg Pain (ED) Additional Instructions: Please use your home pain medicine and wear the walking boot and do not put any weight on the leg. Please see your surgeon BREANA. Forms: Patient Portal Access Time of Disposition: 13:53 Quality - Quality Measures Quality Measures: N/A - Blood Pressure Screening View Details: Yes Does Patient Have Any of the Following: No Blood Pressure Classification: Pre-Hypertensive BP Reading Systolic Measurement: 123 Diastolic Measurement: 71 Screening for High Blood Pressure: < Pre-Hypertensive BP, F/U Documented > [ G8950] Pre-Hypertensive Follow-up Interventions: Referral to alternative/primary care provider.
[2017-10-31] MEDS: HYDROCODONE/APAP 5/325MG TABLET PO ONE ×2 (13:29→13:58)
--- NOTE | 2017-11-02 11:03 | RADIOLOGY REPORT ---
EXAM: RIGHT TIBIA AND FIBULA HISTORY: POSTERIOR PAIN STATUS POST INJURY. RECENT FOOT SURGERY. TECHNIQUE: AP and lateral views of the right tibia and fibula were obtained. Comparison: Previous right knee series dated 07/20/17 and right foot series dated 07/20/17. Encounter: Initial. FINDINGS: The tibia and fibula are intact. There is no fracture or dislocation. A surgical anchor is present within the medial aspect of the navicular and is only partially included on this examination. There are no soft tissue abnormalities. IMPRESSION: NO ACUTE PATHOLOGY IDENTIFIED. JOB NUMBER: [id number] [facility]
== END 2017-10-31 14:01 | disposition home or self-care (01) ==
LOC: ER 13:05
DX: M79.661 Pain in right lower leg (principal); F17.210 Nicotine dependence, cigarettes, uncomplicated
CPT/HCPCS: 99283

== ENCOUNTER 2019-05-27 21:24 | Emergency (ER) | payer MEDICAID ==
[2019-05-27] MEDS ORDERED: 0.9 % SODIUM CHLORIDE 1,000 ML BAG IV ONE (22:21)
[2019-05-27] MEDS ORDERED: ACETAMINOPHEN 1,000 MG/100 ML BTL IVPB ONE (22:21)
--- NOTE | 2019-05-27 22:25 | Emergency Department Record ---
History of Present Illness - General Chief Complaint: Palpitations Stated Complaint: FLUTTERING AND FLUSHED FEELING Time Seen by Provider: 05/27/19 22:05 Source: Patient Mode of Arrival: Ambulatory Limitations: No limitations - History of Present Illness Initial Comments: The patient is here due to feeling "flushed" off and on today and has had diarrhea for 2 days. She has had 2 episodes today of loose watery stools and has had the flushed feeling worse today. The patient denies any weakness, numbness, MARTINEZ, CP, SOB, palpitations, or AP. She also feels like she may be having an anxiety attack presently after being in the bathroom here and the flushed feeling worsened. She then helped herself to the floor and is feeling anxious presently. The patient states she has had issues like this with anxiety in the past. There also has been no fever or vomiting. MD Complaint: Palpitations Onset/Timin -: Days(s) Context: Other Associated Symptoms: Denies other symptoms - Related Data Home Medications Medication Instructions Recorded Confirmed Last Taken Duloxetine HCl [Cymbalta] 60 mg PO BID 05/27/19 05/27/19 05/27/19 Fremanezumab-Vfrm [Ajovy] 1 syringe SQ MONTHLY 05/27/19 05/27/19 05/14/19 Hydroxyzine HCl 25 mg PO ASDIR PRN 05/27/19 05/27/19 Unknown Magnesium Oxide [Magnesium Oxide 400 mg PO BID 05/27/19 05/27/19 05/27/19 400] Methocarbamol [Robaxin] 750 mg PO TID 05/27/19 05/27/19 05/27/19 Pregabalin [Lyrica] 300 mg PO BID 05/27/19 05/27/19 05/27/19 Allergies Allergy/AdvReac Type Severity Reaction Status Date / Time ciprofloxacin [From Cipro] Allergy Severe bronchiospa Verified 08/18/17 15:10 sms ciprofloxacin HCl Allergy Severe bronchiospa Verified 08/18/17 15:10 [From Cipro] sms Penicillins Allergy Severe HIVES Verified 08/18/17 15:10 topiramate [From Topamax] Allergy Severe ANAPHYLAXIS Verified 08/18/17 15:10 alprazolam [From Xanax] Allergy Intermediate HYPERSENSIT Verified 08/18/17 15:10 IVITY nitrofurantoin Allergy Intermediate VOMITING Verified 08/18/17 15:10 [From Macrobid] nitrofurantoin Allergy Intermediate VOMITING Verified 08/18/17 15:10 macrocrystalline [From Macrobid] Travel Screening - Travel/Exposure Within Last 30 Days Have you traveled within the last 30 days?: No - Travel/Exposure Within Last Year Have you traveled outside the [place] in the last year?: No - Additonal Travel Details Have you been exposed to anyone with a communicable illness?: No - Travel Symptoms Symptom Screening: None Review of Systems Constitutional: Reports: Malaise. Denies: Chills, Fever Eyes: Denies: Eye discharge ENT: Denies: Congestion Respiratory: Denies: Cough, Dyspnea Cardiovascular: Denies: Chest pain Endocrine: Reports: Fatigue Gastrointestinal: Reports: Diarrhea. Denies: Nausea, Vomiting Genitourinary: Denies: Dysuria Musculoskeletal: Denies: Arthralgia Skin: Denies: Bruising Past Medical History - SOCIAL HISTORY Smoking Status: Former smoker Alcohol Use: Rare Drug Use: Heavy Drug Use Detail:: Marijuana - RESPIRATORY Hx Respiratory Disorders: No - CARDIOVASCULAR Hx Cardio Disorders: No - NEURO Hx Neuro Disorders: Yes Hx Headaches: Yes (migraines) - GI Hx GI Disorders: Yes Hx Reflux: Yes - Hx Genitourinary Disorders: No - ENDOCRINE Hx Endocrine Disorders: No - MUSCULOSKELETAL Hx Musculoskeletal Disorders: No - PSYCH Hx Psych Problems: Yes Hx Anxiety: Yes Hx Depression: Yes - HEMATOLOGY/ONCOLOGY Hx Hematology/Oncology Disorders: No Family Medical History Any Significant Family History?: Yes Hx Diabetes: Father Hx Heart Disease: Father Hx Stroke: Father *Stroke Comment: anurism Physical Exam - General General Appearance: Alert, Oriented x3, Cooperative, No acute distress - Head Head exam: Atraumatic, Normocephalic, Normal inspection - Eye Eye exam: Normal appearance, PERRL - ENT Throat exam: Normal inspection. negative: Tonsillar erythema, Tonsillar exudate - Neck Neck exam: Normal inspection, Full ROM. negative: Tenderness - Respiratory Respiratory exam: Normal lung sounds bilaterally. negative: Respiratory distress - Cardiovascular Cardiovascular Exam: Regular rate, Normal rhythm, Normal heart sounds. negative: Diastolic murmur, Systolic murmur - GI/Abdominal GI/Abdominal exam: Soft, Normal bowel sounds. negative: Tenderness - Extremities Extremities exam: Normal inspection, Full ROM, Normal capillary refill. negative: Tenderness - Neurological Neurological exam: Alert, Normal gait. negative: Abnormal gait, Motor sensory deficit - Psychiatric Psychiatric exam: Anxious - Skin Skin exam: negative: Rash Course Vital Signs 05/27/19 21:37 Temperature 98.1 F Pulse Rate [ 100 H Left] Respiratory 20 Rate Blood Pressure 170/104 [Left Arm] Pulse Ox 100 - Reevaluation(s) Reevaluation #1: The patient is doing very well at this time. She is resting comfortably and feels much better. She is to drink plenty of fluids at home and to return to the ER for any worsening issues. 05/27/19 23:39 Medical Decision Making - Data Complexity MDM Data: Labs Ordered and/or Reviewed, EKG Ordered and/or Reviewed - Lab Data Result diagrams: 05/27/19 22:20 05/27/19 22:20 - EKG Data -: EKG Interpreted by Me EKG: No Acute Changes, Normal EKG Disposition Disposition: Discharge Clinical Impression: Anxiety about health Disposition: Home, Self-Care Condition: (2) Stable Instructions: Anxiety (ED) Additional Instructions: Please rest and drink plenty of fluids. Please see your family doctor for recheck next week. Please use the Ativan if needed and return to the ER for any worsening symptoms. Forms: Patient Portal Access Time of Disposition: 23:35 Quality - Quality Measures Quality Measures: N/A - Blood Pressure Screening View Details: Yes Does Patient Have Any of the Following: No Blood Pressure Classification: Hypertensive Reading Systolic Measurement: 155 Diastolic Measurement: 91 Screening for High Blood Pressure: < First Hypertensive BP, F/U Documented > [G8950] First Hypertensive Follow-up Interventions: Referral to alternative/primary care provider.
[2019-05-27 22:33] LABS: ABSOLUTE NEUTROPHIL COUNT 6.14; BASO % 1.2 % (0-6); EOS % 6.5 % (0-6); GRAN % 50.8 % (47-80); HEMATOCRIT 43.1 % (35.0-47.0); HEMOGLOBIN 14.2 gm/dl (11.6-16.0); LYMPH % 34.1 % (16-45); MEAN CELL VOLUME 87.1 fl (81-97); MEAN CORPUSCULAR HEMOGLOBIN 28.7 pg (27-33); MEAN CORPUSCULAR HGB CONC 32.9 g/dl (32-36); MEAN PLATELET VOLUME 10.2 fl (7.4-10.4); MONO % 7.4 % (0-9); PLATELET COUNT 290 K/uL (130-400); RED BLOOD COUNT 4.95 M/uL (3.80-5.40); RED CELL DISTRIBUTION WIDTH 13.8 % (11.5-14.5); WHITE BLOOD COUNT W/O DIFF 12.1 K/uL (4.2-12.2)
[2019-05-27 22:45] LABS: BLOOD UREA NITROGEN 18 mg/dL (6-20)
[2019-05-27 22:46] LABS: CREATININE 0.6 mg/dL (0.5-0.9); EST GLOMERULAR FILTRATION RATE > 60 mL/min; TOTAL PROTEIN 7.7 g/dL (6.6-8.7)
[2019-05-27 22:48] LABS: GLUCOSE,RANDOM 120 mg/dL (74-109)
[2019-05-27 22:51] LABS: ALB/GLOB RATIO 1.4 (1.1-1.8); ALBUMIN 4.5 g/dL (4.0-5.0); ALKALINE PHOSPHATASE 69 U/L (35-104); ALT/SGPT 16 U/L (<33); AST/SGOT 15 U/L (10.0-35.0); C-REACTIVE PROTEIN 0.36 mg/dL (<0.5)
[2019-05-27] MEDS ORDERED: LORAZEPAM 0.5 MG TABLET PO ONE ×2 (22:58→23:33)
== END 2019-05-27 23:52 | disposition home or self-care (01) ==
LOC: ER 21:24
DX: F41.1 Generalized anxiety disorder (principal); R23.2 Flushing; R00.2 Palpitations; R19.7 Diarrhea, unspecified; Z87.891 Personal history of nicotine dependence
CPT/HCPCS: 80053; 85025; 86140; 93005; 93010; 96365; 99284; J7030

== ENCOUNTER 2019-06-14 09:31 | Emergency (ER) | payer MEDICAID ==
--- NOTE | 2019-06-14 09:53 | Emergency Department Record ---
Anxiety - General Chief Complaint: Anxiety Stated Complaint: FEELING FLUSHED/HEART RACING Time Seen by Provider: 06/14/19 09:45 Source: Patient - History of Present Illness Initial Comments: The patient was seen here on 05-27-19 for "the same" symptoms which a warm flushed feeling "my heart opened up and I felt flushed fro head to toe through my body 10-12 hours, then diarrhea." She had blood work done at that time and was sent home with PCP follow up. She reports she has had 2 episodes like this since the initial visit which also were associated with a dull achy left arm. Last evening she was sitting watching TV when the same symptoms returned (minus the arm) and lasted 3-4 hours. She feels a sensation of her heart racing, but has never counted her rate during these episodes. In 2007 or so she was told by her neurologist that it was topamax which was causing her symptoms then and the medication was discontinued. She states she vapes marijuana daily for her chronic foot pain, she takes an estradiol pill daily and uses the vaginal cream as well. She denies NM, PE DVT, recent surgeries or long travel. She has an appointment this Thursday06-17-19 with her PCP to follow this up. FH includes Mom with arrhythmia seeing Dr. sAhanti VÁSQUEZ with no Mi or CVA; Dad CVA and NM and @ 66yr. Complaint: Other Onset/Timin -: Week(s) Previous History of Same: Yes (, also 05-27-19) Quality: Intermittant Provoking factors: None known Improves With: Nothing Worsens With: Nothing - Related Data Allergies/Adverse Reactions: Allergies Allergy/AdvReac Type Severity Reaction Status Date / Time ciprofloxacin [From Cipro] Allergy Severe bronchiospa Verified 08/18/17 15:10 sms ciprofloxacin HCl Allergy Severe bronchiospa Verified 08/18/17 15:10 [From Cipro] sms Penicillins Allergy Severe HIVES Verified 08/18/17 15:10 topiramate [From Topamax] Allergy Severe ANAPHYLAXIS Verified 08/18/17 15:10 alprazolam [From Xanax] Allergy Intermediate HYPERSENSIT Verified 08/18/17 15:10 IVITY nitrofurantoin Allergy Intermediate VOMITING Verified 08/18/17 15:10 [From Macrobid] nitrofurantoin Allergy Intermediate VOMITING Verified 08/18/17 15:10 macrocrystalline [From Macrobid] Review of Systems Reviewed: No additional complaints except as noted below Constitutional: Reports: As per HPI. Denies: Chills, Fever, Malaise, Night s weats, Weakness, Weight change Eyes: Reports: As per HPI. Denies: Eye discharge, Eye pain, Photophobia, Vision change ENT: Reports: As per HPI. Denies: Congestion, Dental pain, Ear pain, Epistaxis, Hearing loss, Throat pain Respiratory: Reports: As per HPI. Denies: Cough, Dyspnea, Hemoptysis, Stridor, Wheezes Cardiovascular: Reports: As per HPI. Denies: Arrhythmia, Chest pain, Dyspnea on exertion, Edema, Murmurs, Orthopnea, Palpitations, Paroxysmal nocturnal dyspnea, Rheumatic Fever, Syncope Endocrine: Reports: As per HPI. Denies: Fatigue, Heat or cold intolerance, Polydipsia, Polyuria Gastrointestinal: Reports: As per HPI. Denies: Abdominal pain, Constipation, Diarrhea, Hematemesis, Hematochezia, Melena, Nausea, Vomiting Genitourinary: Reports: As per HPI. Denies: Abnormal menses, Discharge, Dyspareunia, Dysuria, Frequency, Hematuria, Incontinence, Retention, Urgency Musculoskeletal: Reports: As per HPI. Denies: Arthralgia, Back pain, Gout, Joint swelling, Myalgia, Neck pain Skin: Reports: As per HPI. Denies: Bruising, Change in color, Change in nathalie r/nails, Lesions, Pruritus, Rash Neurological: Reports: As per HPI. Denies: Abnormal gait, Confusion, Headache, Numbness, Paresthesias, Seizure, Tingling, Tremors, Vertigo, Weakness Psychiatric: Reports: As per HPI. Denies: Anxiety, Auditory hallucinations, Depression, Homicidal thoughts, Suicidal thoughts, Visual hallucinations Hematological/Lymphatic: Reports: As per HPI. 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 history: Reports: other (total hysterectomy) - RESPIRATORY Hx Respiratory Disorders: No - CARDIOVASCULAR Hx Cardio Disorders: No - NEURO Hx Neuro Disorders: Yes Hx Headaches: Yes (migraines) - GI Hx GI Disorders: Yes Hx Reflux: Yes - Hx Genitourinary Disorders: No - ENDOCRINE Hx Endocrine Disorders: No - MUSCULOSKELETAL Hx Musculoskeletal Disorders: No - PSYCH Hx Psych Problems: Yes Hx Anxiety: Yes Hx Depression: Yes - HEMATOLOGY/ONCOLOGY Hx Hematology/Oncology Disorders: No Family Medical History Hx Diabetes: Father Hx Heart Disease: Father Hx Stroke: Father *Stroke Comment: anurism Physical Exam - General General Appearance: Alert, Oriented x3, Cooperative, No acute distress - Head Head exam: Normal inspection - Eye Eye exam: Normal appearance, PERRL, EOMI. negative: Conjunctival injection, Nystagmus, Scleral icterus Pupils: Normal accommodation - ENT ENT exam: Normal exam, Mucous membranes moist, Normal external ear exam, Normal orophraynx, TM's normal bilaterally Ear exam: Normal external inspection. negative: External canal tenderness Nasal Exam: Normal inspection. negative: Discharge, Sinus tenderness Mouth exam: Normal external inspection, Tongue normal Teeth exam: Normal inspection. negative: Dental caries Throat exam: Normal inspection. negative: Tonsillar erythema, Tonsillar exudate - Neck Neck exam: Normal inspection, Full ROM. negative: Lymphadenopathy, Meningismus, Tenderness - Respiratory Respiratory exam: Normal lung sounds bilaterally. negative: Respiratory distress - Cardiovascular Cardiovascular Exam: Normal rhythm, Normal heart sounds, Tachycardia (109) - GI/Abdominal GI/Abdominal exam: Soft, Normal bowel sounds. negative: Tenderness - Rectal Rectal exam: Deferred - exam: Deferred - Extremities Extremities exam: Normal inspection, Full ROM, Normal capillary refill. negative: Calf tenderness, Joint swelling, Pedal edema, Tenderness - Back Back exam: Reports: Normal inspection, Full ROM. Denies: CVA tenderness (R), CVA tenderness (L), Muscle spasm, Rash noted, Tenderness - Neurological Neurological exam: Alert, CN II-XII intact, Normal gait, Oriented X3, Reflexes normal. negative: Motor sensory deficit - Psychiatric Psychiatric exam: Normal affect, Normal mood - Skin Skin exam: Dry, Intact, Normal color, Warm Course - Reevaluation(s) Reevaluation #1: During my initial interview the patient stated that she was having another episode. Her pulse on the monitor did not change, but she began fanning her face with her hand, and feeling her skin it did become very mildly clammy, but not flushed. She remained alert and conversive during this episode. 06/14/19 10:31 Reevaluation #2: 06/14/19 10:37 Patient was given ice chips for her dry mouth. Reevaluation #3: Results discussed with patient. All questions answered. Last visit she was sent home with ativan for 2 doses which helped her. Will give her a dose prior to DC as she is currently tearful and anxious, and dispense a 1 mg tablet of ativan for home with no prescriptions. 06/14/19 11:17 Medical Decision Making - Management Options MDM Management: No Additional Work-up Planned (PCP follow on Thursday as previously aranged.) - Data Complexity MDM Data: Labs Ordered and/or Reviewed, EKG Ordered and/or Reviewed (EKG:NSR with no acute abnormalities and no change from prior of 05-27-19 except rate of 93 (prior 84).) - Lab Data Result diagrams: 06/14/19 10:19 06/14/19 10:19 Disposition Disposition: Discharge Clinical Impression: Anxiety Disposition: Home, Self-Care Condition: (1) Good Instructions: Social Anxiety Disorder (ED) Additional Instructions: Continue present medications. Ativan 1 mg tablet for home to take if symptoms worsen: take 1/2 tablet for anxiety symptoms. Keep your appointment with your PCP on Thursday as [id number] arranged. Quality - Quality Measures Quality Measures: N/A - Blood Pressure Screening Does Patient Have Any of the Following: No Blood Pressure Classification: Pre-Hypertensive BP Reading Systolic Measurement: 155 Diastolic Measurement: 86 Screening for High Blood Pressure: < Pre-Hypertensive BP, F/U Documented > [G8950] Pre-Hypertensive Follow-up Interventions: Follow-up with rescreen every year., Lifestyle modifications., Referral to alternative/primary care provider. Lifestyle Modification: Weight Reduction, Dietary Approaches to Stop Hypertension (DASH) Eating Plan, Dietary Sodium Restriction, Increased Physical Activity, Moderation in alcohol (ETOH) consumption
[2019-06-14 10:24] LABS: ABSOLUTE NEUTROPHIL COUNT 6.21; BASO % 0.9 % (0-6); EOS % 6.1 % (0-6); HEMATOCRIT 45.2 % (35.0-47.0); HEMOGLOBIN 15.1 gm/dl (11.6-16.0); LYMPH % 22.6 % (16-45); MEAN CELL VOLUME 85.9 fl (81-97); MEAN CORPUSCULAR HEMOGLOBIN 28.7 pg (27-33); MEAN CORPUSCULAR HGB CONC 33.4 g/dl (32-36); MONO % 5.4 % (0-9); PLATELET COUNT 315 K/uL (130-400); RED BLOOD COUNT 5.26 M/uL (3.80-5.40); RED CELL DISTRIBUTION WIDTH 13.2 % (11.5-14.5); WHITE BLOOD COUNT W/O DIFF 9.6 K/uL (4.2-12.2)
[2019-06-14 10:36] LABS: BLOOD UREA NITROGEN 14 mg/dL (6-20); CREATININE 0.6 mg/dL (0.5-0.9); EST GLOMERULAR FILTRATION RATE > 60 mL/min; TOTAL PROTEIN 7.7 g/dL (6.6-8.7)
[2019-06-14 10:38] LABS: GLUCOSE,RANDOM 128 mg/dL (74-109); INR 0.9; PARTIAL THROMBOPLASTIN TIME 25.7 SECONDS (24.5-39.1); PROTHROMBIN TIME (PATIENT) 9.7 SECONDS (9.5-12.1)
[2019-06-14 10:41] LABS: ALB/GLOB RATIO 1.3 (1.1-1.8); ALBUMIN 4.4 g/dL (4.0-5.0); ALKALINE PHOSPHATASE 80 U/L (35-104); ALT/SGPT 13 U/L (<33); AST/SGOT 11 U/L (10.0-35.0)
[2019-06-14] MEDS ORDERED: 0.9 % SODIUM CHLORIDE 500ML 500 ML IV SCH (10:45)
[2019-06-14 10:50] LABS: AMPHETAMINE SCREEN URINE NOT DETECTED; BARBITURATE SCREEN URINE NOT DETECTED; BENZODIAZEPINE SCREEN URINE NOT DETECTED; COCAINE SCREEN URINE NOT DETECTED; METHADONE SCREEN URINE NOT DETECTED; METHAMPHETAMINE SCREEN NOT DETECTED; OPIATE SCREEN URINE NOT DETECTED; OXYCODONE SCREEN URINE NOT DETECTED; PHENCYCLIDINE SCREEN URINE NOT DETECTED; PROPOXYPHENE SCREEN URINE NOT DETECTED; THC SCREEN URINE NOT DETECTED; TRICYCLIC ANTIDEPRESSANT SCRN NOT DETECTED
[2019-06-14 10:51] LABS: THYROID STIMULATING HORMONE 3.41 uIU/mL (0.270-4.20)
[2019-06-14 10:52] LABS: URINE APPEARANCE CLEAR; URINE BILIRUBIN NEGATIVE (NEGATIVE); URINE BLOOD NEGATIVE (NEGATIVE); URINE COLOR YELLOW; URINE GLUCOSE (UA) NEGATIVE (NEGATIVE); URINE KETONE NEGATIVE (NEGATIVE); URINE LEUKOCYTE ESTERASE NEGATIVE (NEGATIVE); URINE NITRITE NEGATIVE (NEGATIVE); URINE PROTEIN NEGATIVE (NEGATIVE); URINE UROBILINOGEN 0.2 E.U./dL (0.20 - 1.00)
[2019-06-14] MEDS ORDERED: LORAZEPAM 2 MG/ML VIAL IV ONE (11:18)
[2019-06-14] MEDS ORDERED: LORAZEPAM 0.5 MG TABLET PO ONE (11:19)
== END 2019-06-14 11:46 | disposition home or self-care (01) ==
LOC: ER 09:31
DX: F41.9 Anxiety disorder, unspecified (principal); R23.2 Flushing; R00.0 Tachycardia, unspecified; R19.7 Diarrhea, unspecified; Z87.891 Personal history of nicotine dependence
CPT/HCPCS: 80053; 80305; 81003; 84443; 84484; 85025; 85379; 85610; 85730; 93005; 93010; 96361; 96374; 99284; J7040